=== PATIENT | male | born 1945 | race Caucasian/White ===

== ENCOUNTER 2017-10-05 07:31 | Inpatient (IN) | payer OTHER ==
[~2017-10-05] VITALS: Ht 170.2 cm; Wt 89.7 kg
[2017-10-05] MEDS ORDERED: SODIUM CHLORIDE 0.9% 1000ML 1,000 ML IV ONE (08:08)
[2017-10-05] MEDS ORDERED: MORPHINE SULFATE 2 MG/ML 1ML SYG ONE (08:08)
[2017-10-05] MEDS ORDERED: ONDANSETRON HCL 4 MG/2 ML VIAL ONE (08:08)
[2017-10-05] MEDS ORDERED: FAMOTIDINE 20MG TAB 20 MG TAB ONE (08:24)
[2017-10-05 08:28] LABS: BASOPHILS % (AUTO) 0.5 % (0.0-5.0); EOSINOPHILS % (AUTO) 0.4 % (0.0-8.0); LYMPHOCYTES % (AUTO) 8.7 % (21.0-51.0); MEAN CORPUSCULAR HEMOGLOBIN 30.8 pg (27.0-33.0); MEAN CORPUSCULAR HGB CONC 33.6 g/dL (32.0-36.0); MEAN CORPUSCULAR VOLUME 91.7 fL (79-99); MONOCYTES % (AUTO) 4.6 % (3.0-13.0); NEUTROPHILS % (AUTO) 85.8 % (40.0-77.0); PLATELET COUNT (AUTO) 211 K/uL (130-400); RED BLOOD CELL COUNT(AUTO) 4.37 MIL/uL (4.50-6.20); RED CELL DISTRIBUTION WIDTH 13.7 % (11.0-15.5); WHITE BLOOD COUNT (AUTO) 13.7 K/uL (4.8-10.8)
[2017-10-05 08:38] LABS: CREATININE 1.4 mg/dL (0.5-1.5); POTASSIUM 4.7 mmol/L (3.5-5.1)
[2017-10-05 08:44] LABS: ALBUMIN 3.7 g/dL (3.5-5.0); BILIRUBIN,TOTAL 0.6 mg/dL (0.2-1.0); TOTAL PROTEIN, SERUM 7.8 g/dL (6.0-8.3)
[2017-10-05 10:36] LABS: APPEARANCE,URINE Clear (CLEAR); BILIRUBIN,URINE Negative (NEGATIVE); COLOR,URINE Yellow (YELLOW); GLUCOSE, URINE (UA) >=1000 mg/dL (NEGATIVE); KETONES,URINE 15 mg/dL (NEGATIVE); LEUKOCYTE ESTERASE ,URINE Negative (NEGATIVE); NITRATE,URINE Negative (NEGATIVE); OCCULT BLOOD,URINE Trace (NEGATIVE); PROTEIN,URINE POS 2+ (NEGATIVE)
[2017-10-05 11:05] LABS: BACTERIA,URINE Few /HPF (None Seen); RBC,URINE 0-1 /HPF (0-1); SQUAMOUS EPITHELIAL CELL,UR 0-2 /LPF (0-2); WBC,URINE 0-1 /HPF (0-1)
[2017-10-05] MEDS ORDERED: ZOSYN 3.375GM+NS 50ML 50 ML IV ONE (11:15)
[2017-10-05] MEDS ORDERED: 1/2 NORMAL SALINE 1,000 ML IV ONE (11:16)
[2017-10-05] MEDS ORDERED: HYDROMORPHONE HCL 0.5 MG/0.5 ML ML ONE (14:42)
[2017-10-05 18:05] VITALS: BP 156/72
[2017-10-05] MEDS ORDERED: GLIM2TAB3 PO (19:07)
[2017-10-05] MEDS ORDERED: SAXA5TAB PO (19:07)
[2017-10-05] MEDS ORDERED: ATOR10 PO (19:07)
[2017-10-05] MEDS ORDERED: ASPI-555 PO (19:07)
[2017-10-05] MEDS ORDERED: LISI-613 PO (19:07)
[2017-10-05] MEDS ORDERED: METF10004 PO (19:07)
[2017-10-05] MEDS ORDERED: ONDANSETRON HCL 4 MG/2 ML VIAL IVP PRN (19:45)
[2017-10-05] MEDS ORDERED: PNEUMOCOCCAL VACCINE POLYVALENT 0.5 ML/VIAL [PPV] IM SCH (19:45)
[2017-10-05 20:55] VITALS: BP 134/70
[2017-10-05] MEDS: 1/2 NORMAL SALINE 1,000 ML IV SCH (21:50)
[2017-10-05] MEDS: ZOSYN 3.375GM+NS 50ML 50 ML IV SCH (21:50)
[2017-10-05] MEDS: HYDROMORPHONE 1 MG/1 ML AMP IVP PRN (21:54)
[2017-10-06] VITALS (18 sets, daily range): BP systolic 116–195; BP diastolic 56–94
[2017-10-06] MEDS: HYDROMORPHONE 1 MG/1 ML AMP IVP PRN (03:32)
[2017-10-06] MEDS: 1/2 NORMAL SALINE 1,000 ML IV SCH ×2 (04:42→11:45)
[2017-10-06] MEDS: ZOSYN 3.375GM+NS 50ML 50 ML IV SCH ×3 (04:42→21:11)
[2017-10-06 04:52] LABS: BASOPHILS % (AUTO) 0.8 % (0.0-5.0); EOSINOPHILS % (AUTO) 2.2 % (0.0-8.0); HEMATOCRIT 36.9 % (42-54); LYMPHOCYTES % (AUTO) 24.3 % (21.0-51.0); MEAN CORPUSCULAR HEMOGLOBIN 31.6 pg (27.0-33.0); MEAN CORPUSCULAR HGB CONC 33.9 g/dL (32.0-36.0); MEAN CORPUSCULAR VOLUME 93.1 fL (79-99); MONOCYTES % (AUTO) 8.9 % (3.0-13.0); NEUTROPHILS % (AUTO) 63.8 % (40.0-77.0); PLATELET COUNT (AUTO) 200 K/uL (130-400); RED BLOOD CELL COUNT(AUTO) 3.96 MIL/uL (4.50-6.20); RED CELL DISTRIBUTION WIDTH 13.8 % (11.0-15.5)
[2017-10-06 05:09] LABS: ALBUMIN 3.1 g/dL (3.5-5.0); BILIRUBIN,TOTAL 0.8 mg/dL (0.2-1.0); CREATININE 1.2 mg/dL (0.5-1.5); POTASSIUM 4.1 mmol/L (3.5-5.1); TOTAL PROTEIN, SERUM 6.9 g/dL (6.0-8.3)
[2017-10-06] MEDS: INSULIN R NPO SSI SQ SCH ×5 (06:00→18:00)
[2017-10-06 06:57] LABS: PARTIAL THROMBOPLASTIN TIME 25.5 SEC (26.3-35.5); PROTHROMBIN TIME 10.5 SEC (9.6-11.6)
[2017-10-06] MEDS: FAMOTIDINE/PF 20 MG/2 ML VIAL IV SCH ×2 (09:00→15:11)
[2017-10-06] MEDS ORDERED: SODIUM CHLORIDE 0.9% 1000ML 1,000 ML IV ONE (10:53)
[2017-10-06] MEDS ORDERED: PROPOFOL 10 MG/ML 20ML VIAL IV ONE ×2 (11:02→11:06)
[2017-10-06] MEDS ORDERED: LIDOCAINE PF 2% 5ML ABBOJECT ONE (11:03)
[2017-10-06] MEDS ORDERED: DEXAMETHASONE SOD PHOSPHATE 10MG/ML 1ML VIAL ONE (11:03)
[2017-10-06] MEDS ORDERED: ONDANSETRON HCL 4 MG/2 ML VIAL ONE (11:03)
[2017-10-06] MEDS ORDERED: ROCURONIUM BROMIDE 10MG/1ML 5ML VL ONE (11:03)
[2017-10-06] MEDS ORDERED: MIDAZOLAM HCL 1 MG/ML 2ML VIAL ONE (11:05)
[2017-10-06] MEDS ORDERED: FENTANYL CITRATE PF 50 MCG/1 ML 2ML VIAL ONE (11:06)
[2017-10-06] MEDS ORDERED: HEPARIN SODIUM 1000UNIT/ML 10ML VIAL ONE (11:33)
[2017-10-06] MEDS ORDERED: NEOSTIGMINE METHYLSULFATE 1MG/ML IV ONE (12:53)
[2017-10-06] MEDS ORDERED: LACTATED RINGERS 1000ML 1,000 ML IV SCH (13:09)
[2017-10-06] MEDS ORDERED: ACETAMINOPHEN-CODEINE 300/30MG TAB PO PRN ×2 (13:15)
[2017-10-06] MEDS ORDERED: LABETALOL HCL 5 MG/ML 20ML VIAL IV ONE (13:26)
[2017-10-06] MEDS ORDERED: MEPERIDINE-PF 25 MG/ML SYG ONE (13:43)
[2017-10-06] MEDS ORDERED: MORPHINE SULFATE 2 MG/ML 1ML SYG IVP PRN (15:00)
[2017-10-06] MEDS ORDERED: MORPHINE SULFATE 4 MG/1ML SYG IV PRN (15:00)
[2017-10-06] MEDS ORDERED: MORPHINE SULFATE 4 MG/1ML SYG ONE (15:02)
[2017-10-06] MEDS ORDERED: ACETAMINOPHEN 325 MG TAB ONE (17:15)
[2017-10-06] MEDS ORDERED: CLONIDINE HCL 0.1 MG TABLET PO PRN (20:00)
[2017-10-06] MEDS: INSULIN HUMULIN R 100 UNIT/ML 3ML SQ SCH (21:00)
[2017-10-06] MEDS: LISINOPRIL 20 MG TABLET PO SCH (21:10)
[2017-10-07 00:12] VITALS: BP 156/80
[2017-10-07 04:39] VITALS: BP 160/82
[2017-10-07] MEDS: ZOSYN 3.375GM+NS 50ML 50 ML IV SCH (06:02)
[2017-10-07] MEDS: INSULIN HUMULIN R 100 UNIT/ML 3ML SQ SCH (06:03)
[2017-10-07 07:00] VITALS: BP 139/78
[2017-10-07] MEDS ORDERED: ACET1TAB12 PO (08:30)
[2017-10-07] MEDS: LISINOPRIL 20 MG TABLET PO SCH (09:44)
[2017-10-07] MEDS: FAMOTIDINE/PF 20 MG/2 ML VIAL IV SCH (09:44)
== END 2017-10-07 10:20 | disposition home or self-care (01) | DRG 419 ==
LOC: EDH 07:31 → EDHIP 10:44 → OBSVTOIN 10:44 → 3DH 17:44
PROVIDERS: ADMIT Internal Medicine; ATTEND Internal Medicine
PROC: 0FT44ZZ Resection of Gallbladder, Percutaneous Endoscopic Approach (ICD-10-PCS; principal; 2017-10-06 11:27)
DX: K80.00 Calculus of gallbladder with acute cholecystitis without obstruction (principal); E11.22 Type 2 diabetes mellitus with diabetic chronic kidney disease; E11.42 Type 2 diabetes mellitus with diabetic polyneuropathy; I12.9 Hypertensive chronic kidney disease with stage 1 through stage 4 chronic kidney disease, or unspecified chronic kidney disease; N18.2 Chronic kidney disease, stage 2 (mild); E78.5 Hyperlipidemia, unspecified; M54.5 Low back pain; G89.29 Other chronic pain; E78.00 Pure hypercholesterolemia, unspecified
CPT/HCPCS: 36415; 74176; 76705; 80053; 81001; 82150; 82948; 83690; 84484; 85025; 85610; 85730; 93005; 96365; 96366; 96372; 96375; 96376; G0378; J1100; J1170; J1644; J1815; J2001; J2175; J2250; J2270; J2405; J2543; J2704; J2710; J3010; J3490; J7030; J7120

== ENCOUNTER → 2018-07-12 | Outpatient (CLI) | payer OTHER ==
[~2018-07-12] MED LIST: ACET1TAB12 PO; ASPI-555 PO; ATOR10 PO; GLIM2TAB3 PO; LISI-613 PO; METF-446 PO; SAXA5TAB PO
== END | disposition home or self-care (01) ==
LOC: OIH 13:51
PROVIDERS: ATTEND Internal Medicine
DX: M19.011 Primary osteoarthritis, right shoulder (principal); M75.41 Impingement syndrome of right shoulder
CPT/HCPCS: 73030

== ENCOUNTER → 2018-10-20 | Outpatient (CLI) | payer OTHER | END | disposition home or self-care (01) | LOC: OIH 11:41 | PROVIDERS: ATTEND Internal Medicine | DX: I10 Essential (primary) hypertension (principal) | CPT/HCPCS: 71046 ==

== ENCOUNTER → 2019-10-31 | Outpatient (CLI) | payer OTHER ==
[~2019-10-31] MED LIST changes: -GLIM2TAB3 PO; +GLIM2TAB30 PO
== END | disposition home or self-care (01) ==
LOC: OIH 10:26
PROVIDERS: ATTEND Internal Medicine
DX: I10 Essential (primary) hypertension (principal); M47.814 Spondylosis without myelopathy or radiculopathy, thoracic region; I70.0 Atherosclerosis of aorta
CPT/HCPCS: 71046

== ENCOUNTER → 2023-12-19 | Outpatient (CLI) | payer OTHER ==
[~2023-12-19] MED LIST changes: -ASPI-555 PO; +ASPI-556 PO; -LISI-613 PO; +LISI20TA24 PO
== END ==
LOC: RAH 15:37
PROVIDERS: ATTEND Internal Medicine
DX: K57.30 Diverticulosis of large intestine without perforation or abscess without bleeding (principal); Z90.49 Acquired absence of other specified parts of digestive tract
CPT/HCPCS: 74176